=== PATIENT | male | born 1935 | race Caucasian/White ===

== ENCOUNTER → 2017-04-18 | Outpatient (CLI) | payer MEDICARE ==
[~2017-04-18] MED LIST: AC500T PO; ASP81CT; ATEN25TA; ATEN50TA PO; CATHETER FLUSH 10 ML SYR IV PRN; FURO20TA4 PO; IOHEXOL 350 MG/ML 100 ML (OMNIPAQUE 350) VIAL IV ONE; LOVENOX; MGX400T; NS 100 ML (IVPB) BAG IV ONE; OLME20TA5; OMG1KC; POTA10CA43 PO; WRF5T
[2017-04-18 12:20] LABS: CREATININE SERUM 1.2 MG/DL (0.60-1.30)
--- NOTE | 2017-04-18 14:06 | Diagnostic Imaging Report ---
PROCEDURE: CT abdomen and pelvis with contrast. TECHNIQUE: Multiple contiguous axial images were obtained through the abdomen and pelvis after administration of intravenous contrast. INDICATION: Low abdominal and back pain. FINDINGS: The lung bases are clear. 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 There is a stone in the ureteropelvic junction. There is very little residual cortex within the right kidney with cortical thickness measuring 5 mm. The left kidney shows normal renal cortex. There is no hydronephrosis on the left. There are no masses noted following IV contrast. There are several peripelvic cyst in the left kidney. Left ureter is opacified to the bladder appears normal. Bladder is opacified and appears normal. The liver appears normal. Gallbladder and bile ducts are not dilated. No gallstones or wall thickening. Pancreas is atrophic. The spleen appears normal. Aorta is atherosclerotic as are the abdominal arteries. There is no evidence of abdominal aneurysm. Good opacification of the abdominal vessels noted. The stomach and small bowel are not dilated. Colon shows normal stool and gas pattern. The appendix is visualized and normal. There is diverticulosis of the sigmoid colon and descending colon without evidence of acute diverticulitis. There is no intra-abdominal adenopathy. There is no free air or free fluid. The anterior abdominal wall is intact with no evidence of ventral or inguinal hernias. There is mild enlargement of the prostate. Bone windows show no blastic or lytic lesions. IMPRESSION: 1. 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 There are renal calculi present with a small stone noted in the renal pelvis on the right. 2. Left kidney appears normal with the exception of some peripelvic cyst. 3. Bladder appears normal. Prostate is mildly enlarged. 4. No evidence of appendicitis or acute diverticulitis. These findings were called and discussed with Dr. Graham. Dictated by: Dictated on workstation # [id number]
== END ==
LOC: RAD 11:39
PROVIDERS: ATTEND Urology
DX: N13.0 Hydronephrosis with ureteropelvic junction obstruction (principal); N20.0 Calculus of kidney; N28.1 Cyst of kidney, acquired; N26.1 Atrophy of kidney (terminal)
CPT/HCPCS: 36415; 74177; 82565; 84520

== ENCOUNTER 2017-04-25 20:51 | Emergency (ER) | payer MEDICARE ==
[~2017-04-25] VITALS: Ht 167.6 cm; Wt 87.1 kg
[~2017-04-25 20:51] MED LIST changes: -CATHETER FLUSH 10 ML SYR IV PRN; -IOHEXOL 350 MG/ML 100 ML (OMNIPAQUE 350) VIAL IV ONE; -NS 100 ML (IVPB) BAG IV ONE
[2017-04-25] MEDS ORDERED: LOSA100T28 (21:25)
[2017-04-25] MEDS ORDERED: ASPI-586 PO (21:25)
[2017-04-25] MEDS ORDERED: SULF-222 (21:25)
[2017-04-25] MEDS ORDERED: WARF-48 (21:25)
[2017-04-25] MEDS ORDERED: ATEN50TA (21:25)
--- NOTE | 2017-04-25 21:29 | ED Cardiac General ---
History of Present Illness General Chief Complaint: Cardiac/General Problems Stated Complaint: HIGH BP Nursing Triage Note: patient reports being nervous this evening and checked BP and it was elevated Source: patient, spouse Exam Limitations: no limitations History of Present Illness Time seen by provider: 21:23 Initial Comments Patient presents ER with a primary complaint of feeling a little off this evening and having measured his blood pressure it was over 200 systolic over 100 diastolic. He denies any chest pain or shortness of breath. He does have a history of a right kidney that is atrophied and he is being followed by Dr. Ovalles. He has a stone in the right kidney and has had some pain in his lower right quadrant and suprapubic regions for about a week. Last week when he saw Dr. Charlette Ovalles had ordered a CAT scan to workup that pain and while it showed some diverticulosis it did not show any reason for his abdominal pain. He was given tramadol and Bactrim he is taking the Bactrim but he felt tramadol made him nauseated so he did not take that. He has no coronary history or thyroid history however he is on atenolol and losartan for his blood pressure which she has been taking. Patient is on warfarin for atrial fibrillation Allergies and Home Medications Allergies Coded Allergies: Penicillins (Unverified Allergy, Mild, 01/28/09) levofloxacin (Verified Allergy, Unknown, 04/25/17) Home Medications Acetaminophen 500 Mg Tablet, 500 MG PO PRN, (Reported) Aspirin 81 Mg Tablet.dr, 81 MG PO, (Reported) Atenolol 50 Mg Tablet, 1 EACH PO DAILY, (Reported) Atenolol 50 Mg Tablet, #90 (Reported) Furosemide 20 Mg Tablet, 1 EACH PO DAILY, (Reported) Losartan Potassium 100 Mg Tablet, #30 (Reported) Potassium Chloride 10 Meq Capsule.sa, 1 EACH PO DAILY WITH FOOD, (Reported) Sulfamethoxazole/Trimethoprim 1 Each Tablet, #14 (Reported) Warfarin Sodium 5 Mg Tablet, (Reported) Warfarin Sodium 5 Mg Tablet, #90 (Reported) Review of Systems Constitutional: No chills, No diaphoresis, No fever, malaise EENTM: No Blurred Vision, No Double Vision, No Eye Pain Respiratory: Denies Cough, Denies Shortness of Air Cardiovascular: Denies Chest Pain, Denies Edema, Irregular Heart Rate, Denies Lightheadedness, Denies Syncope Gastrointestinal: Denies Abdomen Distended, Abdominal Pain (1 week lower hemisphere of his abdomen), Denies Constipated, Denies Diarrhea, Denies Nausea Genitourinary: Denies Discharge, Denies Drainage, Frequency Musculoskeletal: back pain (pain radiates to his lower back), No joint pain Skin: No pruritus, No rash Psychiatric/Neurological: Denies Anxiety, Denies Depressed, Denies Headache, Denies Numbness Past Bwvkdzl-[id number]-Ixscjr Hx Patient Social History Alcohol Use: Denies Use Recreational Drug Use: No Smoking Status: Never a Smoker Recent Foreign Travel: No Contact w/Someone Who Travel: No Recent Infectious Disease Expo: No Recent Hopitalizations: No Respiratory Hx Respiratory Disorders: No Cardiovascular Hx Cardiac Disorders: Yes (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) Neurological Hx Neurological Disorders: Yes Reproductive System Hx Reproductive Disorders: No Genitourinary Hx 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) Gastrointestinal Hx Gastrointestinal Disorders: Yes Musculoskeletal Hx Musculoskeletal Disorders: Yes Endocrine Hx Endocrine Disorders: No HEENT HX ENT Disorders: No Psychosocial Hx Psychiatric Problems: Yes Blood Transfusions Hx Blood Disorders: Yes Physical Exam Vital Signs Vital Sign - Last 12Hours 04/25/17 21:19 Temp 99.3 Pulse 90 Resp 18 B/P (MAP) 173/123 Pulse Ox 93 Capillary Refill : Less Than 3 Seconds General Appearance: No Apparent Distress, WD/WN HEENT: PERRL/EOMI, TMs Normal, Pharynx Normal Respiratory: Chest Non Tender, Lungs Clear, Normal Breath Sounds Cardiovascular: No Edema, Normal Peripheral Pulses, Irregularly Irregular, No JVD Gastrointestinal: Normal Bowel Sounds, Soft, Guarding (left and right lower quadrants), Tenderness (left and right lower quadrants) Extremity: Normal Capillary Refill, Non Tender, No Pedal Edema Neurologic/Psychiatric: Alert, Oriented x3 Skin: Normal Color, Warm/Dry Lymphatic: No Adenopathy Progress/Results/Core Measures Results/Orders Lab Results Laboratory Tests Test 04/25/17 21:40 04/25/17 22:40 Range/Units White Blood Count 5.5 4.3-11.0 10^3/uL Red Blood Count 4.30 L 4.35-5.85 10^6/uL Hemoglobin 13.7 13.3-17.7 G/DL Hematocrit 41 40-54 % Mean Corpuscular Volume 94 80-99 FL Mean Corpuscular Hemoglobin 32 25-34 PG Mean Corpuscular Hemoglobin Concent 34 32-36 G/DL Red Cell Distribution Width 13.7 10.0-14.5 % Platelet Count 143 130-400 10^3/uL Mean Platelet Volume 10.8 H 7.4-10.4 FL Neutrophils (%) (Auto) 63 42-75 % Lymphocytes (%) (Auto) 17 12-44 % Monocytes (%) (Auto) 15 H 0-12 % Eosinophils (%) (Auto) 4 0-10 % Basophils (%) (Auto) 1 0-10 % Neutrophils # (Auto) 3.5 1.8-7.8 X 10^3 Lymphocytes # (Auto) 0.9 L 1.0-4.0 X 10^3 Monocytes # (Auto) 0.8 0.0-1.0 X 10^3 Eosinophils # (Auto) 0.2 0.0-0.3 10^3/uL Basophils # (Auto) 0.1 0.0-0.1 10^3/uL Prothrombin Time 30.7 H 12.2-14.7 SEC INR Comment 3.0 H 0.8-1.4 Activated Partial Thromboplast Time 41 H 24-35 SEC Sodium Level 137 135-145 MMOL/L Potassium Level 4.5 3.6-5.0 MMOL/L Chloride Level 102 98-107 MMOL/L Carbon Dioxide Level 22 21-32 MMOL/L Anion Gap 13 5-14 MMOL/L Blood Urea Nitrogen 20 H 7-18 MG/DL Creatinine 1.56 H 0.60-1.30 MG/DL Estimat Glomerular Filtration Rate 43 BUN/Creatinine Ratio 13 Glucose Level 106 H 70-105 MG/DL Calcium Level 9.5 8.5-10.1 MG/DL Magnesium Level 2.0 1.8-2.4 MG/DL Total Bilirubin 1.1 H 0.1-1.0 MG/DL Aspartate Amino Transf (AST/SGOT) 27 5-34 U/L Alanine Aminotransferase (ALT/SGPT) 22 0-55 U/L Alkaline Phosphatase 103 40-136 U/L Troponin I < 0.30 <0.30 NG/ML B-Type Natriuretic Peptide 571.9 H <100.0 PG/ML Total Protein 6.8 6.4-8.2 GM/DL Albumin 4.1 3.2-4.5 GM/DL Urine Color YELLOW Urine Clarity CLEAR Urine pH 6.5 5-9 Urine Specific [place] 1.010 L 1.016-1.022 Urine Protein 1+ H NEGATIVE Urine Glucose (UA) NEGATIVE NEGATIVE Urine Ketones NEGATIVE NEGATIVE Urine Nitrite NEGATIVE NEGATIVE Urine Bilirubin NEGATIVE NEGATIVE Urine Urobilinogen 4 H NORMAL MG/DL Urine Leukocyte Esterase 1+ H NEGATIVE Urine RBC (Auto) NEGATIVE NEGATIVE Urine RBC RARE /HPF Urine WBC 2-5 /HPF Urine Crystals NONE /LPF Urine Bacteria NONE /HPF Urine Casts NONE /LPF Urine Mucus NEGATIVE /LPF Urine Culture Indicated NO My Orders Orders - MARCY GREENBERG Troponin I (04/25/17 21:29) Chest 1 View, Ap/Pa Only (04/25/17 21:29) Ekg Tracing (04/25/17 21:29) Monitor-Rhythm Ecg Trace Only (04/25/17 21:29) BNP (04/25/17 21:29) Cbc With Automated Diff (04/25/17 21:29) Comprehensive Metabolic Panel (04/25/17 21:29) Magnesium (04/25/17 21:29) Ua Culture If Indicated (04/25/17 21:29) Fentanyl Injection (Sublimaze Injection (04/25/17 21:29) Saline Lock/Iv-Start (04/25/17 21:29) Ondansetron Injection (Zofran Injectio (04/25/17 21:30) Protime With Inr (04/25/17 21:34) Partial Thromboplastin Time (04/25/17 21:34) Lumbar Spine - 2-3 Views (04/25/17 22:39) T-Spine 3v-Ap, Lat, Swimmers (04/25/17 22:39) Medications Given in ED Current Medications Medications Dose Ordered Sig/Tona Route Start Time Stop Time Status Last Admin Dose Admin Ondansetron HCl 4 mg ONCE ONCE IVP 04/25/17 21:30 04/25/17 21:34 DC 04/25/17 21:44 4 MG Vital Signs/I&O Vital Sign - Last 12Hours 04/25/17 21:19 Temp 99.3 Pulse 90 Resp 18 B/P (MAP) 173/123 Pulse Ox 93 Blood Pressure Mean: 140 Progress Note #1: Time: 22:04 Progress Note Gentleman presents with hypertensive urgency without chest pain shortness of breath or nausea. We'll make sure there is no evidence of any coronary disease. Has a negative stress test 2 years ago as well as an echocardiogram with an EF 60% dilated atrial chambers and the right ventricle with severe pulmonary hypertension. He is on atenolol as well as losartan decent doses. Just resting here in the ER his blood pressures are down to 176/91 without any medical intervention. If there is no evidence of end organ damage then we can let him go home and continue his strategy of lowering his blood pressure over days for reasonable goal of less than 160 over less than 100. Review the imaging from last week his abdomen which shows a stone in the right renal pelvis but no reason for his pain at that time. His pain has not really changed since last week. He has been tolerating it without the use the tramadol since it makes him nauseous. We will try get his pain under control today. This does to his blood pressure. We'll also look for evidence of infection with a urinalysis and blood work. If nothing presents self will provide him with outpatient pain management and let him continue his Bactrim and follow-up with Dr. Roth Progress Note #2: Time: 22:40 Progress Note Review the previous imaging of the spine as the patient states the pain actually originated in his back and radiates around the right side. Does not go down his leg. He was first noticing the pain after he had been rubbing in the garden all day and rolling under his lawnmower. Possibility of a vertebral fracture. We'll going obtain plain films of the thoracic and lumbar spine is asked for his having tenderness directly over the midline. After the fentanyl the pain is completely gone. ECG Initial ECG Impression Date: Apr 25, 2017 Initial ECG Impression Time: 21:43 Initial ECG Rate: 79 Initial ECG Rhythm: A Fib/Flutter Initial ECG Intervals: QT Initial ECG Intervals QTC is 487 ms Initial ECG Impression: Atrial Fibrillation Initial ECG Comparisson: No Previous ECG Available Comment No ST wave elevation or depression. Diagnostic Imaging Diagonstic Imaging: Xray Plain Films/CT/US/NM/MRI: chest Comments Progressive left-sided pleural effusion with some right-sided infiltrate versus atelectasis. Reviewed: Reviewed by Me Diagonstic Imaging: Xray Plain Films/CT/US/NM/MRI: other (thoracic and lumbar spine) Comments Vertebral wedging of undetermined age in the thoracic spine and one in the lumbar spine. Degenerative joint disease noted Reviewed: Reviewed by Me Departure Impression Impression: Primary Impression: Degenerative joint disease of thoracic spine Qualified Codes: M47.894 - Other spondylosis, thoracic region Additional Impressions: Fracture of posterior thoracic vertebral body Qualified Codes: S22.009A - Unspecified fracture of unspecified thoracic vertebra, initial encounter for closed fracture Supratherapeutic INR Disposition: HOME, SELF-CARE Condition: Improved Departure-Patient Inst. Decision time for Depature: 23:48 Referrals: NATHALIA NGUYỄN MD (PCP/Family) Primary Care Physician Patient Instructions: Low Back Pain (DC) Add. Discharge Instructions: For your back pain control your pain with 25 mg Tylenol every 6 hours or hydrocodone one tablet every 6 hours as needed. Hydrocodone can cause drowsiness as well as constipation. You should try and take MiraLAX or other laxatives every day while you're on the opiates. You should also wear the back brace every day that helps. Follow-up in the next week to 2 weeks with your primary care physician. If you are having nausea place one tablet of Zofran under your tongue every 6 hours and allowed to dissolve as needed. If you're having muscle spasms in your back from the back pain then you can take the cyclobenzaprine, Flexeril 1 tablet twice a day as needed. Flexeril will cause drowsiness as well as so be cautious while using it with the opiates. Until you know how these medicines will affect you it may be kowalski to take one half of a tablet at time. If you wake up in the morning still drowsy would also be reasonable to cut back to one half a tablet as a postal whole. Your INR was 3.0 and you are on an antibiotic that will cause your INR to raise. Tomorrow you'll should take one half the dose of your warfarin and then the following days get back on her normal scheduled dose and have your INR checked again next week by your primary care physician. Your blood pressure has improved as your pain control has improved. We will try and control your pain using the medicines over the weekend and next week you in your primary care physician can discuss whether or not you need to start a new blood pressure medicine. I would ask that daily in the morning before you had anything to eat drink or do any strenuous activity that you check and log your blood pressure take to your primary care physician. If you're having new or worsening symptoms such as fever then you should return to the ER. All discharge instructions reviewed with patient and/or family. Voiced understanding. Scripts Cyclobenzaprine HCl (Cyclobenzaprine HCl) 10 Mg Tablet 10 MG PO BID Y for SPASMS for 14 Days, #15 TAB 0 Refills Prov: MARCY GREENBERG 04/25/17 Ondansetron (Zofran Odt) 4 Mg Tab.rapdis 4 MG PO Q4H Y for NAUSEA/VOMITING-1ST LINE for 14 Days, #14 TAB 0 Refills Prov: MARCY GREENBERG 04/25/17 Hydrocodone/Acetaminophen (Hydrocodon -Acetaminophen 5-325) 1 Each Tablet 1 EACH PO Q6H Y for PAIN for 14 Days, #20 TAB 0 Refills Prov: MARCY GREENBERG 04/25/17 Copy Copies To 1: NATHALIA NGUYỄN MD, TITUS J Apr 25, 2017 21:29
[2017-04-25] MEDS: fentaNYL INJECTION 100 MCG/2 ML AMP IVP STA (21:44)
[2017-04-25] MEDS: ONDANSETRON 4 MG/2 ML (SDV) Z0FRAN IVP ONE (21:44)
[2017-04-25 21:48] LABS: BASOPHILS # (AUTO) 0.1 10^3/uL (0.0-0.1); BASOPHILS % (AUTO) 1 % (0-10); EOSINOPHILS # (AUTO) 0.2 10^3/uL (0.0-0.3); EOSINOPHILS % (AUTO) 4 % (0-10); LYMPHOCYTES # (AUTO) 0.9 X 10^3 (1.0-4.0); LYMPHOCYTES % (AUTO) 17 % (12-44); MEAN CORPUSCULAR HEMOGLOBIN 32 PG (25-34); MEAN CORPUSCULAR HGB CONC 34 G/DL (32-36); MEAN CORPUSCULAR VOLUME 94 FL (80-99); MEAN PLATELET VOLUME 10.8 FL (7.4-10.4); MONOCYTES # (AUTO) 0.8 X 10^3 (0.0-1.0); MONOCYTES % (AUTO) 15 % (0-12); NEUTROPHILS # (AUTO) 3.5 X 10^3 (1.8-7.8); NEUTROPHILS % (AUTO) 63 % (42-75); PLATELET COUNT 143 10^3/uL (130-400); RED CELL DISTRIBUTION WIDTH 13.7 % (10.0-14.5); WHITE BLOOD COUNT 5.5 10^3/uL (4.3-11.0)
[2017-04-25 21:58] LABS: PROTHROMBIN TIME PATIENT 30.7 SEC (12.2-14.7)
[2017-04-25 22:06] LABS: ALBUMIN 4.1 GM/DL (3.2-4.5); BILIRUBIN,TOTAL 1.1 MG/DL (0.1-1.0); CALCIUM 9.5 MG/DL (8.5-10.1); CREATININE SERUM 1.56 MG/DL (0.60-1.30); POTASSIUM 4.5 MMOL/L (3.6-5.0); TOTAL PROTEIN 6.8 GM/DL (6.4-8.2)
[2017-04-25 22:49] LABS: BILIRUBIN,URINE NEGATIVE (NEGATIVE); KETONES,URINE NEGATIVE (NEGATIVE); LEUKOCYTE ESTERASE ,URINE 1+ (NEGATIVE); NITRITE,URINE NEGATIVE (NEGATIVE); PH,URINE 6.5 (5-9); PROTEIN,URINE 1+ (NEGATIVE); UROBILINOGEN,URINE 4 MG/DL (NORMAL)
[2017-04-25] MEDS ORDERED: CYCL10TA9 PO (23:54)
[2017-04-25] MEDS ORDERED: ONDA4TAB8 PO (23:54)
[2017-04-25] MEDS ORDERED: HYDR-3812 PO (23:54)
[2017-04-25] MEDS ORDERED: RX-CYCLOBENZAPRINE 10 MG (FLEXERIL) TAB PPK#3 PO STA (23:56)
[2017-04-25 23:58] VITALS: BP 183/103
[2017-04-26] MEDS ORDERED: RX-HYDROCODONE/APAP 5/325 MG #4 TAB PK PO PRN
--- NOTE | 2017-04-26 07:15 | Diagnostic Imaging Report ---
INDICATION: Chronic back pain. COMPARISON: None. FINDINGS: Four views of the thoracic column demonstrate normal alignment. There is no subluxation or fracture. Chronic compression fracture is seen at L2. There is no new fracture or traumatic malalignment. Moderate degenerative changes seen throughout the disc spaces. IMPRESSION: 1. Chronic L2 compression fracture. No new compression fracture seen. 2. Stable degenerative disc disease. Dictated by: Dictated on workstation # [id number]
--- NOTE | 2017-04-26 07:41 | Diagnostic Imaging Report ---
INDICATION: Hypertension COMPARISON: 04/02/16 FINDINGS: Single view of the chest demonstrates cardiac enlargement with slight central vascular congestion. There is no pneumothorax. No focal infiltrate. IMPRESSION: Cardiac enlargement with slight central vascular congestion Dictated by: Dictated on workstation # [id number]
--- NOTE | 2017-04-26 07:41 | Diagnostic Imaging Report ---
INDICATION: Low back pain. COMPARISON: 10/06/15. FINDINGS: 3 views of lumbar colon demonstrate chronic compression fracture of L2. No new fracture is seen. There is no traumatic malalignment. Moderate diffuse degenerative changes are seen. IMPRESSION: Chronic L2 compression fracture. No new abnormality identified. Dictated by: Dictated on workstation # [id number]
== END 2017-04-26 | disposition home or self-care (01) ==
LOC: EDUNIT# 20:51 → ER 20:52
DX: R79.1 Abnormal coagulation profile (principal); M48.56XA Collapsed vertebra, not elsewhere classified, lumbar region, initial encounter for fracture; M48.54XA Collapsed vertebra, not elsewhere classified, thoracic region, initial encounter for fracture; I48.91 Unspecified atrial fibrillation; Z90.5 Acquired absence of kidney; Z86.79 Personal history of other diseases of the circulatory system; Z79.01 Long term (current) use of anticoagulants
CPT/HCPCS: 36415; 71010; 72072; 72100; 80053; 81000; 83735; 83880; 84484; 85025; 85610; 85730

== ENCOUNTER → 2017-09-08 | Outpatient (CLI) | payer MEDICARE ==
[~2017-09-08] MED LIST changes: +ASPI-586 PO; +ATEN50TA; +CYCL10TA9 PO; +HYDR-3812 PO; +LOSA100T28; +ONDA4TAB8 PO; +SULF-222; +WARF-48
--- NOTE | 2017-09-08 08:22 | Diagnostic Imaging Report ---
INDICATION: Difficulty breathing and cough. PA and lateral chest obtained at 8:27 a.m. and compared to 04/25/17. FINDINGS: There is cardiomegaly. There is central vascular congestion without cornelia edema. There are chronic appearing increased basilar markings which are similar to the prior study. There is no new infiltrate or pneumothorax. There is no significant pleural fluid. IMPRESSION: Cardiomegaly and central vascular prominence without cornelia edema. Chronic appearing increased interstitial markings are similar to the prior study. No consolidation or pleural fluid. Dictated by: Dictated on workstation # [id number]
== END ==
LOC: RAD 07:55
PROVIDERS: ATTEND Internal Medicine
DX: I51.7 Cardiomegaly (principal); R06.00 Dyspnea, unspecified; R91.8 Other nonspecific abnormal finding of lung field; R05 Cough
CPT/HCPCS: 71020; 94060; 94726; 94729

== ENCOUNTER 2018-04-14 06:57 | Emergency (ER) | payer MEDICARE ==
[~2018-04-14] VITALS: Ht 167.6 cm; Wt 79.4 kg
[~2018-04-14 06:57] MED LIST changes: +ACHD5005 PO; -HYDR-3812 PO
[2018-04-14 07:38] LABS: BASOPHILS % (AUTO) 1 % (0-10); EOSINOPHILS # (AUTO) 0.4 10^3/uL (0.0-0.3); EOSINOPHILS % (AUTO) 12 % (0-10); HEMATOCRIT 37 % (40-54); HEMOGLOBIN 12.3 G/DL (13.3-17.7); LYMPHOCYTES # (AUTO) 0.8 X 10^3 (1.0-4.0); LYMPHOCYTES % (AUTO) 24 % (12-44); MEAN CORPUSCULAR HEMOGLOBIN 34 PG (25-34); MEAN CORPUSCULAR HGB CONC 34 G/DL (32-36); MEAN CORPUSCULAR VOLUME 101 FL (80-99); MEAN PLATELET VOLUME 11.7 FL (7.4-10.4); MONOCYTES # (AUTO) 0.4 X 10^3 (0.0-1.0); MONOCYTES % (AUTO) 13 % (0-12); NEUTROPHILS # (AUTO) 1.7 X 10^3 (1.8-7.8); NEUTROPHILS % (AUTO) 51 % (42-75); PLATELET COUNT 107 10^3/uL (130-400); RED BLOOD COUNT 3.62 10^6/uL (4.35-5.85); RED CELL DISTRIBUTION WIDTH 14.8 % (10.0-14.5); WHITE BLOOD COUNT 3.4 10^3/uL (4.3-11.0)
--- NOTE | 2018-04-14 07:42 | ED General ---
General Chief Complaint: Cardiac/General Problems Stated Complaint: DIZZY, BLOOD PRESSURE 215/110 Source of Information: Patient Exam Limitations: No Limitations History of Present Illness Date Seen by Provider: Apr 14, 2018 Time Seen by Provider: 07:25 Initial Comments Here with report of feeling a little dizzy this morning so he took his blood pressure. It was noted to be high at home. He did take a clonidine that he had left over from previous. He then presented to the emergency department. Denies chest pain or breathing problems. Did have some nausea earlier that has subsequently resolved. He still feels a little bit dizzy. States that his blood pressures been good for quite some time but recently has had more problems with his blood pressure. He is only on atenolol. Timing/Duration: 1 Hour, 1-3 Hours Severity: Moderate Associated Systoms: No Chest Pain, No Fever/Chills, No Headaches; Nausea/ Vomiting; No Shortness of Air, No Weakness Allergies and Home Medications Allergies Coded Allergies: Penicillins (Unverified Allergy, Mild, 01/28/09) levofloxacin (Verified Allergy, Unknown, 04/25/17) Home Medications Acetaminophen 500 Mg Tablet, 500 MG PO PRN, (Reported) Amlodipine Besylate 10 Mg Tablet, 10 MG PO DAILY Prescribed by: ORTIZ ALEXANDRE on 04/14/18 104 Atenolol 50 Mg Tablet, 1 EACH PO DAILY, (Reported) Cyclobenzaprine HCl 10 Mg Tablet, 10 MG PO BID PRN for SPASMS Prescribed by: MARCY GREENBERG on 04/25/172353 Furosemide 20 Mg Tablet, 1 EACH PO DAILY, (Reported) Furosemide 40 Mg Tablet, 40 MG PO DAILY Prescribed by: ORTIZ ALEXANDRE on 04/14/18 104 Hydrocodone Bit/Acetaminophen 1 Each Tablet, 1 EACH PO Q6H PRN for PAIN Prescribed by: MARCY GREENBERG on 04/25/172353 Ondansetron 4 Mg Tab.rapdis, 4 MG PO Q4H PRN for NAUSEA/VOMITING-1ST LINE Prescribed by: MARCY GREENBERG on 04/25/172353 Potassium Chloride 10 Meq Capsule.sa, 1 EACH PO DAILY WITH FOOD, (Reported) Patient Home Medication List Home Medication List Reviewed: Yes Review of Systems Constitutional: see HPI; No chills, No fever EENTM: no symptoms reported Respiratory: No cough, No short of breath Cardiovascular: No chest pain, No edema, No palpitations Gastrointestinal: No abdominal pain; nausea; No vomiting Genitourinary: no symptoms reported Musculoskeletal: no symptoms reported Skin: no symptoms reported Psychiatric/Neurological: See HPI; Denies Numbness, Denies Weakness Hematologic/Lymphatic: Easy Bruising; Denies Swollen Glands All Other Systems Reviewed Negative Unless Noted: Yes Past Mvdkxoj-Qciohc-Wxohvt Hx Past Med/Social Hx: Reviewed Nursing Past Med/Soc Hx Patient Social History Alcohol Use: Denies Use Recreational Drug Use: No Smoking Status: Never a Smoker Recent Foreign Travel: No Contact w/Someone Who Travel: No Recent Hopitalizations: No Past Medical History Surgeries: Yes (L carotid) Vascular Surgery Respiratory: No Cardiac: Yes (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) Hypertension Neurological: Yes Reproductive Disorders: No Gastrointestinal: Yes Musculoskeletal: Yes Endocrine: No Psychosocial: Yes Blood Disorders: Yes Family Medical History No Pertinent Family Hx Physical Exam Vital Signs Vital Signs - First Documented 04/14/18 07:10 Temp 96.1 Pulse 61 Resp 20 B/P (MAP) 180/95 (123) Pulse Ox 94 O2 Delivery Room Air Capillary Refill : Height, Weight, BMI Height: 5'6.00" Weight: 192lbs. oz. 87.565219rq; BMI Method:Stated General Appearance: No Apparent Distress, WD/WN HEENT: PERRL/EOMI, Pharynx Normal Neck: Non Tender, Supple Respiratory: No Accessory Muscle Use, No Respiratory Distress, Crackles ( bilateral bases), Expiration, Inspiration Cardiovascular: Regular Rate, Rhythm, No Murmur Gastrointestinal: Non Tender, Soft Back: Normal Inspection, No CVA Tenderness, No Vertebral Tenderness Extremity: Normal Range of Motion, Non Tender, Pedal Edema (1+ bilat lower extremities to mid tibia) Neurologic/Psychiatric: Alert, Oriented x3, No Motor/Sensory Deficits, Other ( normal gait) Skin: Normal Color, Warm/Dry Progress/Results/Core Measures Suspected Sepsis SIRS Temperature: Pulse: Respiratory Rate: Laboratory Tests 04/14/18 07:20: White Blood Count 3.4L Blood Pressure / Mean: Laboratory Tests 04/14/18 07:20: Creatinine 1.16, INR Comment 2.6H, Platelet Count 107L, Total Bilirubin 2.1H Results/Orders Lab Results Laboratory Tests Test 04/14/18 07:20 04/14/18 09:37 Range/Units White Blood Count 3.4 L 4.3-11.0 10^3/uL Red Blood Count 3.62 L 4.35-5.85 10^6/uL Hemoglobin 12.3 L 13.3-17.7 G/DL Hematocrit 37 L 40-54 % Mean Corpuscular Volume 101 H 80-99 FL Mean Corpuscular Hemoglobin 34 25-34 PG Mean Corpuscular Hemoglobin Concent 34 32-36 G/DL Red Cell Distribution Width 14.8 H 10.0-14.5 % Platelet Count 107 L 130-400 10^3/uL Mean Platelet Volume 11.7 H 7.4-10.4 FL Neutrophils (%) (Auto) 51 42-75 % Lymphocytes (%) (Auto) 24 12-44 % Monocytes (%) (Auto) 13 H 0-12 % Eosinophils (%) (Auto) 12 H 0-10 % Basophils (%) (Auto) 1 0-10 % Neutrophils # (Auto) 1.7 L 1.8-7.8 X 10^3 Lymphocytes # (Auto) 0.8 L 1.0-4.0 X 10^3 Monocytes # (Auto) 0.4 0.0-1.0 X 10^3 Eosinophils # (Auto) 0.4 H 0.0-0.3 10^3/uL Basophils # (Auto) 0.0 0.0-0.1 10^3/uL Prothrombin Time 28.0 H 12.2-14.7 SEC INR Comment 2.6 H 0.8-1.4 Activated Partial Thromboplast Time 38 H 24-35 SEC Sodium Level 141 135-145 MMOL/L Potassium Level 4.3 3.6-5.0 MMOL/L Chloride Level 109 H 98-107 MMOL/L Carbon Dioxide Level 26 21-32 MMOL/L Anion Gap 6 5-14 MMOL/L Blood Urea Nitrogen 25 H 7-18 MG/DL Creatinine 1.16 0.60-1.30 MG/DL Estimat Glomerular Filtration Rate 60 BUN/Creatinine Ratio 22 Glucose Level 109 H 70-105 MG/DL Calcium Level 8.9 8.5-10.1 MG/DL Magnesium Level 1.9 1.8-2.4 MG/DL Total Bilirubin 2.1 H 0.1-1.0 MG/DL Aspartate Amino Transf (AST/SGOT) 35 H 5-34 U/L Alanine Aminotransferase (ALT/SGPT) 26 0-55 U/L Alkaline Phosphatase 69 40-136 U/L Myoglobin 160.8 H 157.0 H 10.0-92.0 NG/ML Troponin I < 0.30 < 0.30 <0.30 NG/ML B-Type Natriuretic Peptide 1285.6 H <100.0 PG/ML Total Protein 5.9 L 6.4-8.2 GM/DL Albumin 3.8 3.2-4.5 GM/DL My Orders Orders - ORTIZ ALEXANDRE MD Ekg Tracing (04/14/18 07:11) Monitor-Rhythm Ecg Trace Only (04/14/18 07:11) Cbc With Automated Diff (04/14/18 07:28) Magnesium (04/14/18 07:28) Chest 1 View, Ap/Pa Only (04/14/18 07:28) Cardiac Profile 1 (04/14/18 07:28) Comprehensive Metabolic Panel (04/14/18 07:28) Myoglobin Serum (04/14/18 07:28) Protime With Inr (04/14/18 07:28) Partial Thromboplastin Time (04/14/18 07:28) O2 (04/14/18 07:28) Lipid Panel (04/15/18 06:00) Saline Lock/Iv-Start (04/14/18 07:28) BNP (04/14/18 07:28) Dysphagia Screening Tool (04/14/18 07:36) Amlodipine Tablet (Norvasc Tablet) (04/14/18 08:45) Furosemide Injection (Lasix Injection) (04/14/18 08:45) Troponin I (04/14/18 09:31) Myoglobin Serum (04/14/18 09:31) Medications Given in ED Current Medications Medications Dose Ordered Sig/Tona Route Start Time Stop Time Status Last Admin Dose Admin Amlodipine Besylate 10 mg ONCE ONCE PO 04/14/18 08:45 04/14/18 08:46 DC 04/14/18 08:55 10 MG Furosemide 40 mg ONCE ONCE IVP 04/14/18 08:45 04/14/18 08:46 DC 04/14/18 08:57 40 MG Vital Signs/I&O 04/14/18 07:10 Temp 96.1 Pulse 61 Resp 20 B/P (MAP) 180/95 (123) Pulse Ox 94 O2 Delivery Room Air Capillary Refill : Progress Note : Progress Note Seen and evaluated. IV, labs, EKG and chest x-ray ordered. Patient is on Coumadin so we'll check INR. Patient did take his losartan this morning. We did do dysphasia screen and NIH which were both negative. Blood pressure is slowly improving and we will continue to monitor that. 0840: I did speak with Dr. Gill. We will initiate amlodipine 10 mg by mouth for the blood pressure and give Lasix 40 mg IV for the pulmonary vascular congestion. I did speak with the patient about this. He does admit that he's been increasingly short of breath over the last several months. Also notes that he has decreased appetite and some increased fatigue. We will monitor for blood pressure changes. 0930: Meds have been given and her and we will recheck troponin and myoglobin. 1030: Overall patient feels much better although blood pressure is only mildly reduced but is doing better. Systolic blood pressure in the range of 170s and 180s with diastolic in the range of 90s to 100. He has had good urine output. Patient admits that he hasn't been taking his Lasix for some time now and does describe his shortness of breath symptoms to be with exercise consistent with early heart failure. He would like to try to go home today with follow-up with Dr. Menendez. We did discuss risk and benefits. We will continue amlodipine outpatient and have patient restart Lasix daily with follow- up within 1 week and the cardiology clinic. I will send a copy of the chart to Dr. Menendez's office. He will need recheck of his potassium and reevaluation of his overall condition including blood pressure. I did instruct the patient to do daily weights and record. Discharged home with return precautions. Patient verbalize understanding instructions and agreement with plan. ECG Initial ECG Impression Date: Apr 14, 2018 Initial ECG Impression Time: 07:14 Initial ECG Rate: 66 Initial ECG Rhythm: A Fib/Flutter Initial ECG Impression: Atrial Fibrillation Comment Atrial fibrillation with left ventricular hypertrophy. Normal axis. No evidence of ST elevation NC. Similar to previous of 04/25/17. Interpreted by me. Departure Impression Primary Impression: Uncontrolled hypertension Disposition: 01 HOME, SELF-CARE Condition: Stable Departure-Patient Inst. Referrals: NATHALIA NGUYỄN MD (PCP/Family) Primary Care Physician Patient Instructions: High Blood Pressure (DC), High Blood Pressure Emergencies Add. Discharge Instructions: All discharge instructions reviewed with patient and/or family. Voiced understanding. Take medications as directed. You should check and record your weight daily. You need to follow-up in the cardiology clinic next week for recheck and further evaluation. Continue your Lasix/furosemide daily for the next week and then as directed. Return for worse pain, fever, vomiting, weakness, breathing problems, chest pain, uncontrolled blood pressure other concerns as needed. Scripts Furosemide (Furosemide) 40 Mg Tablet 40 MG PO DAILY, #15 TAB 0 Refills Prov: ORTIZ ALEXANDRE MD 04/14/18 Amlodipine Besylate (Amlodipine Besylate) 10 Mg Tablet 10 MG PO DAILY for 30 Days, #30 TAB 0 Refills Prov: ORTIZ ALEXANDRE MD 04/14/18 Copy Copies To 1: DAVIAN MENENDEZ MD, TIMOTHY D MD Apr 14, 2018 07:42
[2018-04-14 07:44] LABS: INR 2.6 (0.8-1.4)
[2018-04-14 07:53] LABS: ALANINE AMINOTRANSFERASE 26 U/L (0-55); ALBUMIN 3.8 GM/DL (3.2-4.5); ALKALINE PHOSPHATASE 69 U/L (40-136); BILIRUBIN,TOTAL 2.1 MG/DL (0.1-1.0); BUN/CREATININE RATIO 22; CALCIUM 8.9 MG/DL (8.5-10.1); CARBON DIOXIDE 26 MMOL/L (21-32); CHLORIDE 109 MMOL/L (98-107); CREATININE SERUM 1.16 MG/DL (0.60-1.30); GFR ESTIMATED 60; GLUCOSE 109 MG/DL (70-105); MAGNESIUM 1.9 MG/DL (1.8-2.4); POTASSIUM 4.3 MMOL/L (3.6-5.0); SODIUM 141 MMOL/L (135-145); TOTAL PROTEIN 5.9 GM/DL (6.4-8.2)
[2018-04-14 08:02] LABS: MYOGLOBIN SERUM 160.8 NG/ML (10.0-92.0)
--- NOTE | 2018-04-14 08:25 | Diagnostic Imaging Report ---
INDICATION: Hypertension. Comparison with 09/08/2017. Findings: There continues to be cardiomegaly. There has been some increase in pulmonary venous congestion. Prominence of central pulmonary arteries consistent with some pulmonary hypertension as well. There are no consolidated infiltrates. No pneumothorax or pleural effusion. IMPRESSION: 1. Cardiomegaly with findings consistent with mild chronic congestive failure. 2. Prominent central pulmonary vessels which may be secondary to some underlying pulmonary hypertension as well. Dictated by: Dictated on workstation # [id number]
[2018-04-14] MEDS ORDERED: amLODIPine 10 MG (NORVASC) TAB PO ONE (08:45)
[2018-04-14] MEDS ORDERED: FUROSEMIDE 40 MG/4 ML INJ (LASIX) IVP ONE (08:45)
[2018-04-14] MEDS ORDERED: AMLO10TA2 PO (10:46)
[2018-04-14] MEDS ORDERED: FURO40TA4 PO (10:46)
[2018-04-14 10:53] VITALS: BP 173/109
== END 2018-04-14 10:54 | disposition home or self-care (01) ==
LOC: EDUNIT# 06:57 → ER 06:59
DX: I10 Essential (primary) hypertension (principal); Z88.0 Allergy status to penicillin; Z88.1 Allergy status to other antibiotic agents; Z79.01 Long term (current) use of anticoagulants
CPT/HCPCS: 36415; 71045; 80053; 83735; 83874; 83880; 84484; 85025; 85610; 85730; 93005; 93041; 96374

== ENCOUNTER → 2018-05-01 | Outpatient (CLI) | payer MEDICARE ==
[~2018-05-01] MED LIST changes: +AMLO10TA2 PO; +FURO40TA4 PO
== END ==
LOC: CARD 13:25
PROVIDERS: ATTEND Physician Assistant
DX: I48.2 Chronic atrial fibrillation (principal); I10 Essential (primary) hypertension; R06.09 Other forms of dyspnea; I08.3 Combined rheumatic disorders of mitral, aortic and tricuspid valves; I27.20 Pulmonary hypertension, unspecified
CPT/HCPCS: 93306

== ENCOUNTER 2018-06-02 13:20 | Outpatient (RCR) | payer MEDICARE ==
[2018-06-02 14:00] LABS: ABSOLUTE RETIC # 33 10e9/L (24-90); BASOPHILS % (AUTO) 1 % (0-10); EOSINOPHILS # (AUTO) 0.4 10^3/uL (0.0-0.3); EOSINOPHILS % (AUTO) 9 % (0-10); HEMATOCRIT 36 % (40-54); LYMPHOCYTES # (AUTO) 1.2 X 10^3 (1.0-4.0); LYMPHOCYTES % (AUTO) 27 % (12-44); MEAN CORPUSCULAR HEMOGLOBIN 34 PG (25-34); MEAN CORPUSCULAR HGB CONC 34 G/DL (32-36); MEAN CORPUSCULAR VOLUME 101 FL (80-99); MEAN PLATELET VOLUME 9.6 FL (7.4-10.4); MONOCYTES # (AUTO) 0.6 X 10^3 (0.0-1.0); MONOCYTES % (AUTO) 14 % (0-12); NEUTROPHILS # (AUTO) 2.3 X 10^3 (1.8-7.8); NEUTROPHILS % (AUTO) 50 % (42-75); PLATELET COUNT 99 10^3/uL (130-400); RED BLOOD COUNT 3.56 10^6/uL (4.35-5.85); RED CELL DISTRIBUTION WIDTH 13.9 % (10.0-14.5); RETICULOCYTE % 0.92 % (0.50-2.40); WHITE BLOOD COUNT 4.6 10^3/uL (4.3-11.0)
[2018-06-02 14:26] LABS: ALBUMIN 3.9 GM/DL (3.2-4.5); BILIRUBIN,TOTAL 1.5 MG/DL (0.1-1.0); CALCIUM 9.3 MG/DL (8.5-10.1); CREATININE SERUM 1.15 MG/DL (0.60-1.30); POTASSIUM 4.1 MMOL/L (3.6-5.0); TOTAL PROTEIN 6.2 GM/DL (6.4-8.2)
[2018-06-02 15:59] LABS: FIBRIN DEGRADATION PRODUCTS 0.53 UG/ML (0.00-0.49)
== END 2018-06-21 | disposition home or self-care (01) ==
LOC: ONC 13:20
PROVIDERS: ATTEND Internal Medicine Hematology & Oncology
DX: D64.9 Anemia, unspecified (principal); D69.6 Thrombocytopenia, unspecified; I48.91 Unspecified atrial fibrillation; I10 Essential (primary) hypertension; R60.0 Localized edema; R06.09 Other forms of dyspnea; Z79.01 Long term (current) use of anticoagulants; Z79.82 Long term (current) use of aspirin
CPT/HCPCS: 36415; 80053; 82607; 82728; 82746; 83010; 83540; 83615; 85025; 85045; 85379; 85384; 85730; 86880; 99214

== ENCOUNTER → 2018-06-02 | Outpatient (CLI) | payer MEDICARE ==
[~2018-06-02] MED LIST changes: -AMLO10TA2 PO; +AMLO10TA6 PO; -LOSA100T28; +LOSA100T8
[2018-06-02 14:53] LABS: BILIRUBIN,TOTAL 1.5 MG/DL (0.1-1.0); CALCIUM 9.3 MG/DL (8.5-10.1); CREATININE SERUM 1.15 MG/DL (0.60-1.30); POTASSIUM 4.1 MMOL/L (3.6-5.0)
[2018-06-02 14:54] LABS: ALBUMIN 3.9 GM/DL (3.2-4.5); TOTAL PROTEIN 6.2 GM/DL (6.4-8.2)
== END ==
LOC: LAB 14:05
PROVIDERS: ATTEND Internal Medicine
DX: I10 Essential (primary) hypertension (principal); E78.5 Hyperlipidemia, unspecified; Z79.899 Other long term (current) drug therapy
CPT/HCPCS: 36415; 80053; 84443

== ENCOUNTER 2018-10-15 13:00 | Outpatient (RCR) | payer MEDICARE ==
[~2018-10-15 13:00] MED LIST changes: -AMLO10TA6 PO; +AMLO10TA7 PO; +LOSA100T57; -LOSA100T8
[2018-10-15 13:34] LABS: BASOPHILS # (AUTO) 0.1 10^3/uL (0.0-0.1); BASOPHILS % (AUTO) 1 % (0-10); EOSINOPHILS # (AUTO) 0.3 10^3/uL (0.0-0.3); EOSINOPHILS % (AUTO) 5 % (0-10); HEMATOCRIT 41 % (40-54); HEMOGLOBIN 14.2 G/DL (13.3-17.7); LYMPHOCYTES # (AUTO) 1.2 X 10^3 (1.0-4.0); LYMPHOCYTES % (AUTO) 22 % (12-44); MEAN CORPUSCULAR HEMOGLOBIN 34 PG (25-34); MEAN CORPUSCULAR HGB CONC 34 G/DL (32-36); MEAN CORPUSCULAR VOLUME 98 FL (80-99); MEAN PLATELET VOLUME 10.6 FL (7.4-10.4); MONOCYTES # (AUTO) 0.4 X 10^3 (0.0-1.0); MONOCYTES % (AUTO) 8 % (0-12); NEUTROPHILS # (AUTO) 3.3 X 10^3 (1.8-7.8); NEUTROPHILS % (AUTO) 64 % (42-75); PLATELET COUNT 124 10^3/uL (130-400); RED CELL DISTRIBUTION WIDTH 13.6 % (10.0-14.5); WHITE BLOOD COUNT 5.2 10^3/uL (4.3-11.0)
[2018-10-15 14:01] LABS: BILIRUBIN,TOTAL 1.2 MG/DL (0.1-1.0); CALCIUM 9.3 MG/DL (8.5-10.1); CREATININE SERUM 1.44 MG/DL (0.60-1.30); POTASSIUM 4.2 MMOL/L (3.6-5.0); TOTAL PROTEIN 6.6 GM/DL (6.4-8.2)
== END 2019-01-13 | disposition home or self-care (01) ==
LOC: ONC 13:00
PROVIDERS: ATTEND Internal Medicine Hematology & Oncology
DX: D64.9 Anemia, unspecified (principal); D69.6 Thrombocytopenia, unspecified; E55.9 Vitamin D deficiency, unspecified; I48.91 Unspecified atrial fibrillation; I10 Essential (primary) hypertension; R60.0 Localized edema; R06.09 Other forms of dyspnea; Z79.01 Long term (current) use of anticoagulants; Z79.82 Long term (current) use of aspirin
CPT/HCPCS: 36415; 80053; 82306; 85025; 99213

== ENCOUNTER → 2019-04-05 | Outpatient (CLI) | payer MEDICARE ==
--- NOTE | 2019-04-05 17:50 | Diagnostic Imaging Report ---
INDICATION: Fall with left knee pain and swelling. TIME OF EXAM: 2:34 p.m. TECHNIQUE: Two views of the left knee were obtained. FINDINGS: There is significant lateral compartmental joint space narrowing and marginal spurring. Medial compartment is maintained. Szcy-nw-ndencsai patellofemoral degenerative changes noted. There is moderate fullness in the suprapatellar region, consistent with joint effusion. Generalized demineralization is noted. No fractures are seen. IMPRESSION: Degenerative changes, demineralization, and moderate joint effusion. No acute bony abnormality is detected. Dictated by: Dictated on workstation # [id number]
--- NOTE | 2019-04-05 17:55 | Diagnostic Imaging Report ---
INDICATION: Shortness of air. TIME OF EXAM: 2:32 p.m. COMPARISON: Correlation is made with prior chest from 04/14/2018. FINDINGS: The heart is enlarged but stable. Lungs are hyperinflated consistent with COPD. No infiltrates are seen. There is no significant effusion or pneumothorax. IMPRESSION: Cardiomegaly and COPD. Dictated by: Dictated on workstation # [id number]
== END ==
LOC: RAD 14:07
PROVIDERS: ATTEND Internal Medicine
DX: M17.12 Unilateral primary osteoarthritis, left knee (principal); M25.462 Effusion, left knee; M81.0 Age-related osteoporosis without current pathological fracture; I51.7 Cardiomegaly; J44.9 Chronic obstructive pulmonary disease, unspecified; W19.XXXA Unspecified fall, initial encounter
CPT/HCPCS: 71046; 73562

== ENCOUNTER 2019-04-15 13:10 | Outpatient (RCR) | payer MEDICARE ==
[2019-04-08 13:33] LABS: BASOPHILS # (AUTO) 0.1 10^3/uL (0.0-0.1); BASOPHILS % (AUTO) 1 % (0-10); EOSINOPHILS # (AUTO) 0.4 10^3/uL (0.0-0.3); EOSINOPHILS % (AUTO) 10 % (0-10); HEMATOCRIT 37 % (40-54); HEMOGLOBIN 11.5 G/DL (13.3-17.7); LYMPHOCYTES % (AUTO) 22 % (12-44); MEAN CORPUSCULAR HEMOGLOBIN 32 PG (25-34); MEAN CORPUSCULAR HGB CONC 31 G/DL (32-36); MEAN CORPUSCULAR VOLUME 103 FL (80-99); MEAN PLATELET VOLUME 11.7 FL (7.4-10.4); MONOCYTES # (AUTO) 0.7 X 10^3 (0.0-1.0); MONOCYTES % (AUTO) 14 % (0-12); NEUTROPHILS # (AUTO) 2.4 X 10^3 (1.8-7.8); NEUTROPHILS % (AUTO) 53 % (42-75); PLATELET COUNT 107 10^3/uL (130-400); WHITE BLOOD COUNT 4.5 10^3/uL (4.3-11.0)
[2019-04-08 14:07] LABS: ALBUMIN 3.6 GM/DL (3.2-4.5); BILIRUBIN,TOTAL 1.8 MG/DL (0.1-1.0); CREATININE SERUM 1.33 MG/DL (0.60-1.30); TOTAL PROTEIN 5.8 GM/DL (6.4-8.2)
== END 2019-07-07 | disposition home or self-care (01) ==
LOC: ONC 13:10
PROVIDERS: ATTEND Internal Medicine Hematology & Oncology
DX: D64.9 Anemia, unspecified (principal); D69.6 Thrombocytopenia, unspecified; E55.9 Vitamin D deficiency, unspecified; I48.91 Unspecified atrial fibrillation; I10 Essential (primary) hypertension; R60.0 Localized edema; R06.09 Other forms of dyspnea; Z79.01 Long term (current) use of anticoagulants; Z79.82 Long term (current) use of aspirin
CPT/HCPCS: 80053; 82306; 82728; 83615; 85025; 99213

== ENCOUNTER 2019-07-23 10:21 | Emergency (ER) | payer MEDICARE ==
[~2019-07-23] VITALS: Ht 177.8 cm; Wt 79.5 kg
[~2019-07-23 10:21] MED LIST changes: -ATEN50TA; -LOSA100T57; +LOSA100T57 PO; -WARF-48; +WARF-48 PO
[2019-07-23] MEDS ORDERED: TETANUS,DIPTH,PERTUSS P/F (BOOSTRIX) 0.5 ML VIAL IM ONE (11:00)
--- NOTE | 2019-07-23 11:03 | ED Fall/Injury ---
General Chief Complaint: Trauma-Non Activation Stated Complaint: FELL Source: patient Exam Limitations: no limitations History of Present Illness Date Seen by Provider: Jul 23, 2019 Time Seen by Provider: 11:01 Initial Comments To ER per private vehicle from home with reports of a fall. The patch to his vehicle was closing, he moved to get out of the road and in doing so he fell. He did not hit his head and denies any loss of consciousness or neck pain. He does report left shoulder pain, left posterior thoracic pain and left elbow pain. He denies left abdominal pain. Occurred: just prior to arrival Severity: moderate Injuries/Pain Location: upper extremity Context: lost balance Loss of Consciousness: no loss of consciousness Associated Symptoms (Fall): No Neck Pain Allergies and Home Medications Allergies Coded Allergies: Penicillins (Unverified Allergy, Mild, 01/28/09) levofloxacin (Verified Allergy, Unknown, 04/25/17) Home Medications Acetaminophen 500 Mg Tablet, 500 MG PO PRN, (Reported) Amlodipine Besylate 10 Mg Tablet, 10 MG PO DAILY Prescribed by: ORTIZ ALEXANDRE on 04/14/18 104 Atenolol 50 Mg Tablet, 1 EACH PO DAILY, (Reported) Cyclobenzaprine HCl 10 Mg Tablet, 10 MG PO BID PRN for SPASMS Prescribed by: MARCY GREENBERG on 04/25/17 235 Furosemide 20 Mg Tablet, 1 EACH PO DAILY, (Reported) Furosemide 40 Mg Tablet, 40 MG PO DAILY Prescribed by: ORTIZ ALEXANDRE on 04/14/18 1046 Hydrocodone Bit/Acetaminophen 1 Each Tablet, 1 EACH PO Q6H PRN for PAIN Prescribed by: MARCY GREENBERG on 04/25/17 235 Ondansetron 4 Mg Tab.rapdis, 4 MG PO Q4H PRN for NAUSEA/VOMITING-1ST LINE Prescribed by: MARCY GREENBERG on 04/25/17 235 Potassium Chloride 10 Meq Capsule.sa, 1 EACH PO DAILY WITH FOOD, (Reported) Patient Home Medication List Home Medication List Reviewed: Yes Review of Systems Review of Systems Constitutional: see HPI Eyes: No Symptoms Reported Ears, Nose, Mouth, Throat: no symptoms reported Respiratory: no symptoms reported Cardiovascular: no symptoms reported Genitourinary: no symptoms reported Musculoskeletal: no symptoms reported Skin: no symptoms reported Psychiatric/Neurological: No Symptoms Reported Past Eqraqml-Kuawwj-Xfshgq Hx Patient Social History 2nd Hand Smoke Exposure: No Recent Foreign Travel: No Contact w/Someone Who Travel: No Recent Hopitalizations: No Seasonal Allergies Seasonal Allergies: Yes Past Medical History Surgeries: Yes (L carotid) Vascular Surgery Respiratory: No Cardiac: Yes (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) Hypertension Neurological: No Reproductive Disorders: No 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 ) Gastrointestinal: No Musculoskeletal: Yes Arthritis, Back Injury Endocrine: No HEENT: Yes Cataract Cancer: No Psychosocial: No Blood Disorders: No Family Medical History No Pertinent Family Hx Physical Exam Vital Signs Vital Signs - First Documented Capillary Refill : Height, Weight, BMI Height: 5'6.00" Weight: 175lbs. oz. 79.273039vl; BMI Method:Stated General Appearance: WD/WN, no apparent distress HEENT: PERRL/EOMI, normal ENT inspection Neck: non-tender, full range of motion Cardiovascular: no murmur, irregularly irregular Respiratory: no respiratory distress, no accessory muscle use, rales ( ) Gastrointestinal: normal bowel sounds, non tender, soft Neurologic/Psychiatric: alert, normal mood/affect, oriented x 3 Skin: normal color, warm/dry, other (superficial skin tear posterior left elbow, over the ulnar styloid left wrist, to the very tips of the fingers. These were covered with bandages.) Darin Coma Score Best Eye Response: (4) Open Spontaneously Best Verbal Response: (5) Oriented Best Motor Response: (6) Obeys Commands Darin Total: 15 Progress/Results/Core Measures Results/Orders Lab Results Laboratory Tests Test 07/23/19 12:35 Range/Units White Blood Count 4.9 4.3-11.0 10^3/uL Red Blood Count 3.70 L 4.35-5.85 10^6/uL Hemoglobin 12.0 L 13.3-17.7 G/DL Hematocrit 37 L 40-54 % Mean Corpuscular Volume 100 H 80-99 FL Mean Corpuscular Hemoglobin 32 25-34 PG Mean Corpuscular Hemoglobin Concent 33 32-36 G/DL Red Cell Distribution Width 15.4 H 10.0-14.5 % Platelet Count 88 L 130-400 10^3/uL Mean Platelet Volume 10.7 H 7.4-10.4 FL Neutrophils (%) (Auto) 65 42-75 % Lymphocytes (%) (Auto) 15 12-44 % Monocytes (%) (Auto) 13 H 0-12 % Eosinophils (%) (Auto) 6 0-10 % Basophils (%) (Auto) 1 0-10 % Neutrophils # (Auto) 3.2 1.8-7.8 X 10^3 Lymphocytes # (Auto) 0.8 L 1.0-4.0 X 10^3 Monocytes # (Auto) 0.6 0.0-1.0 X 10^3 Eosinophils # (Auto) 0.3 0.0-0.3 10^3/uL Basophils # (Auto) 0.0 0.0-0.1 10^3/uL Prothrombin Time 28.3 H 12.2-14.7 SEC INR Comment 2.5 H 0.8-1.4 Sodium Level 139 135-145 MMOL/L Potassium Level 4.5 3.6-5.0 MMOL/L Chloride Level 104 98-107 MMOL/L Carbon Dioxide Level 25 21-32 MMOL/L Anion Gap 10 5-14 MMOL/L Blood Urea Nitrogen 25 H 7-18 MG/DL Creatinine 1.20 0.60-1.30 MG/DL Estimat Glomerular Filtration Rate 57 BUN/Creatinine Ratio 21 Glucose Level 89 70-105 MG/DL Calcium Level 9.1 8.5-10.1 MG/DL My Orders Orders - YANA CONWAY APRN Ribs/Unilateral With Chest (07/23/19 10:58) Elbow, Left, 3 Views (07/23/19 10:58) Shoulder, Left, 3 Views (07/23/19 10:58) Dipht,Pertuss(Acell),Tet Adult (Boostrix (07/23/19 11:00) Us Abdomen Limited [id number] (07/23/19 11:03) Ed Iv/Invasive Line Start (07/23/19 12:29) Cbc With Automated Diff (07/23/19 12:29) Basic Metabolic Panel (07/23/19 12:29) I-Stat Bedside Testing (07/23/19 12:32) Protime With Inr (07/23/19 12:38) Ct Abdomen/Pelvis W (07/23/19 13:06) Iohexol Injection (Omnipaque 350 Mg/Ml 1 (07/23/19 13:15) Received Contrast (Hold Metformin- Contr (07/23/19 13:15) Sodium Chloride Flush (Catheter Flush Sy (07/23/19 13:15) Ns (Ivpb) (Sodium Chloride 0.9% Ivpb Bag (07/23/19 13:15) Medications Given in ED Current Medications Medications Dose Ordered Sig/Tona Route Start Time Stop Time Status Last Admin Dose Admin Diphtheria/ Tetanus/Acell Pertussis 0.5 ml ONCE ONCE IM 07/23/19 11:00 07/23/19 11:01 DC 07/23/19 11:08 0.5 ML Iohexol 100 ml ONCE ONCE IV 07/23/19 13:15 07/23/19 13:16 DC 07/23/19 13:23 100 ML Sodium Chloride 10 ml NEEDED PRN IV 07/23/19 13:15 07/23/19 13:23 10 ML Sodium Chloride 100 ml ONCE ONCE IV 07/23/19 13:15 07/23/19 13:16 DC 07/23/19 13:23 80 ML Vital Signs/I&O 07/23/19 07/23/19 10:30 10:30 Temp 36.2 36.2 Pulse 79 79 Resp 12 12 B/P (MAP) 193/110 (137) 193/110 (137) Pulse Ox 92 92 O2 Delivery Room Air Room Air Diagnostic Imaging Diagonstic Imaging: Ultrasound Comments NAME: [facility] REC#: [id number] PT STATUS: REG ER : 1935 PHYSICIAN: YANA CONWAY APRN ADMIT DATE: 07/23/19/ER Draft POSDate of Exam:07/23/19 US ABDOMEN LIMITED [id number] PROCEDURE: US Abdomen, limited. TECHNIQUE: Multiple real-time grayscale images were obtained over the abdomen in various projections. INDICATION: Fall, evaluate for free fluid. COMPARISON: None. FINDINGS: The spleen measures 12.8 cm in length. There is a small amount of free fluid about the spleen. A splenic laceration is not seen by ultrasound. The left kidney appears normal. No free fluid is seen elsewhere in the abdomen. IMPRESSION: 1. Small amount of free fluid about the spleen. No sonographic findings of splenic laceration are seen. Findings discussed with Yana Conway by Dr. Schultz, on 07/23/2019 12:36 p.m. Dictated on workstation # [id number] Dict: 07/23/19 1217 Trans: 07/23/19 1240 [id number] Interpreted by: ROGER SCHULTZ MD Electronically signed by: Departure Communication (Admissions) With the patient, he denies being any more short of breath than usual today. He follows with Dr. Menendez. She is on Lasix. He knows that he only has one functioning kidney. The small amount of ascites seen on CT is related to his congestive heart failure as he also has small bilateral pleural effusions, con gestive heart failure history is unknown, there is no splenic laceration or injury or hepatic injury. Impression Primary Impression: Skin abrasion Additional Impressions: Fall at home Qualified Codes: W19.XXXA - Unspecified fall, initial encounter; Y92.009 - Unspecified place in unspecified non-institutional (private) residence as the place of occurrence of the external cause CHF (congestive heart failure) Qualified Codes: I50.9 - Heart failure, unspecified Disposition: 01 HOME, SELF-CARE Condition: Stable Departure-Patient Inst. Decision time for Depature: 12:27 Referrals: NATHALIA NGUYỄN MD (PCP) Primary Care Physician ORTIZ ALEXANDRE MD (Family) Primary Care Physician Patient Instructions: Skin Abrasions (DC) Add. Discharge Instructions: 1. Return to ER for any concerns 2. Follow-up with your doctor next week 3. All discharge instructions reviewed with patient and/or family. Voiced understanding. YANA CONWAY APRN Jul 23, 2019 11:03 POS
--- NOTE | 2019-07-23 12:16 | Diagnostic Imaging Report ---
INDICATION: Fall, pain. COMPARISON: None available. TECHNIQUE: 3 radiograph left elbow dated 07/23/2019. FINDINGS: No acute fracture or dislocation. No destructive osseous process. Joint spaces are well-maintained. No joint effusion. No suspicious radiopaque foreign body. Mild vascular calcifications. IMPRESSION: No acute osseous abnormality. Dictated by: Dictated on workstation # [id number]
--- NOTE | 2019-07-23 12:20 | Diagnostic Imaging Report ---
INDICATION: Fall. COMPARISON: April 14, 2018. TECHNIQUE: Four radiographs of the chest and left-sided ribs dated July 23, 2019. FINDINGS: The cardiac silhouette is enlarged, though stable. Central pulmonary vascular congestion is present. Minimal background interstitial opacities are noted bilaterally. Blunting of the left costophrenic angle. No pneumothorax. Surgical clips are overlying the left neck. No displaced or healing rib fracture. Degenerative changes within the spine. Scattered vascular calcifications. No suspicious radiopaque foreign body. IMPRESSION: No acute displaced or healing rib fracture. Findings consistent with minimal congestive heart failure with minimal interstitial edema and trace left pleural effusion. This appears to be a chronic finding. Additional findings as above. Dictated by: Dictated on workstation # [id number]
--- NOTE | 2019-07-23 12:22 | Diagnostic Imaging Report ---
INDICATION: Fall. COMPARISON: Imaging from the same day. TECHNIQUE: Four radiographs of the left shoulder dated July 23, 2019. FINDINGS: Mild degenerative changes of the acromioclavicular joints. No acute fracture or dislocation. No destructive osseous process. Minimal degenerative changes of the glenohumeral joint. The visualized right lung is clear of focal pulmonary opacity. IMPRESSION: No acute osseous abnormality with mild degenerative changes. Dictated by: Dictated on workstation # [id number]
--- NOTE | 2019-07-23 12:40 | Diagnostic Imaging Report ---
PROCEDURE: US Abdomen, limited. TECHNIQUE: Multiple real-time grayscale images were obtained over the abdomen in various projections. INDICATION: Fall, evaluate for free fluid. COMPARISON: None. FINDINGS: The spleen measures 12.8 cm in length. There is a small amount of free fluid about the spleen. A splenic laceration is not seen by ultrasound. The left kidney appears normal. No free fluid is seen elsewhere in the abdomen. IMPRESSION: 1. Small amount of free fluid about the spleen. No sonographic findings of splenic laceration are seen. Findings discussed with Kojo Conway by Dr. Powell, on 07/23/2019 12:36 p.m. Dictated by: Dictated on workstation # [id number]
[2019-07-23 12:48] LABS: BASOPHILS % (AUTO) 1 % (0-10); EOSINOPHILS # (AUTO) 0.3 10^3/uL (0.0-0.3); EOSINOPHILS % (AUTO) 6 % (0-10); HEMATOCRIT 37 % (40-54); LYMPHOCYTES # (AUTO) 0.8 X 10^3 (1.0-4.0); LYMPHOCYTES % (AUTO) 15 % (12-44); MEAN CORPUSCULAR HEMOGLOBIN 32 PG (25-34); MEAN CORPUSCULAR HGB CONC 33 G/DL (32-36); MEAN CORPUSCULAR VOLUME 100 FL (80-99); MEAN PLATELET VOLUME 10.7 FL (7.4-10.4); MONOCYTES # (AUTO) 0.6 X 10^3 (0.0-1.0); MONOCYTES % (AUTO) 13 % (0-12); NEUTROPHILS # (AUTO) 3.2 X 10^3 (1.8-7.8); NEUTROPHILS % (AUTO) 65 % (42-75); PLATELET COUNT 88 10^3/uL (130-400); RED CELL DISTRIBUTION WIDTH 15.4 % (10.0-14.5); WHITE BLOOD COUNT 4.9 10^3/uL (4.3-11.0)
[2019-07-23 12:53] LABS: INR 2.5 (0.8-1.4); PROTHROMBIN TIME PATIENT 28.3 SEC (12.2-14.7)
[2019-07-23 13:03] LABS: CALCIUM 9.1 MG/DL (8.5-10.1); CREATININE SERUM 1.2 MG/DL (0.60-1.30); POTASSIUM 4.5 MMOL/L (3.6-5.0)
[2019-07-23] MEDS ORDERED: HOLD METFORMIN - RECEIVED CONTRAST 20 ML VIAL IV SCH (13:15)
[2019-07-23] MEDS ORDERED: IOHEXOL 350 MG/ML 100 ML (OMNIPAQUE 350) VIAL IV ONE (13:15)
[2019-07-23] MEDS ORDERED: NS 100 ML (IVPB) BAG IV ONE (13:15)
[2019-07-23] MEDS ORDERED: CATHETER FLUSH 10 ML SYR IV PRN (13:15)
--- NOTE | 2019-07-23 13:54 | Diagnostic Imaging Report ---
PROCEDURE: CT abdomen and pelvis with contrast. TECHNIQUE: Multiple contiguous axial images were obtained through the abdomen and pelvis after administration of intravenous contrast. Auto Exposure Controls were utilized during the CT exam to meet ALARA standards for radiation dose reduction. INDICATION: Left-sided abdominal pain radiating to the left lower quadrant. COMPARISON: Correlation is made with prior CT from 04/18/2017. FINDINGS: Imaging through the lung bases does show development of small bilateral pleural effusions. The heart is enlarged. No discrete liver mass is detected. The gallbladder is unremarkable. No biliary ductal dilatation is seen. Pancreas is atrophic. The spleen is unremarkable. No adrenal mass is detected. A chronic hydronephrosis of the right kidney with marked atrophy and cortical thinning is seen. Small calculus in the region of the UPJ is again noted. Left kidney again demonstrates parapelvic cysts. No definite hydronephrosis is identified. Aorta is heavily calcified but non-aneurysmal. The bowel loops appear to be nonobstructive. There is diverticulosis of the sigmoid colon but no evidence of acute diverticulitis. There is a small amount of free fluid in the perihepatic and perisplenic region as well as within the paracolic gutter on the left. The prostate is enlarged. No definite abdominal or pelvic lymphadenopathy is seen. Lumbar spine shows multilevel spondylosis with probable chronic compression fracture of the L2 vertebral body. IMPRESSION: 1. Cardiomegaly and small bilateral pleural effusions. 2. Chronic atrophy and hydronephrosis of the right kidney with small calculus in the right renal pelvis. 3. Patient has developed some abdominal ascites, mild. There is uncomplicated diverticulosis present. There is also prostatomegaly. No other significant abnormality is seen. Dictated by: Dictated on workstation # [id number]
--- NOTE | 2019-07-23 14:10 | NUR ---
Kojo Conway notified of pt's BP prior to DC.
[2019-07-23] MEDS ORDERED: cloNIDine 0.1 MG (CATAPRES) TAB PO ONE (14:15)
[2019-07-23 14:35] VITALS: BP 204/111
[2019-09-03] MEDS ORDERED: FURO20TA4 PO (09:34)
[2019-09-03] MEDS ORDERED: CHOL5000 PO (09:37)
[2019-09-03] MEDS ORDERED: NAPR220T66 PO (09:37)
[2019-09-03] MEDS ORDERED: LEG CRAMPS PO (09:38)
[2019-09-06] MEDS ORDERED: POTA10TA PO (17:23)
[2019-09-06] MEDS ORDERED: WARF-48 PO (17:23)
[2019-09-06] MEDS ORDERED: FURO-125 PO (17:23)
== END 2019-07-23 14:39 | disposition home or self-care (01) ==
LOC: EDUNIT# 10:21 → ER 10:22
DX: S50.312A Abrasion of left elbow, initial encounter (principal); S60.812A Abrasion of left wrist, initial encounter; S60.419A Abrasion of unspecified finger, initial encounter; I11.0 Hypertensive heart disease with heart failure; I50.9 Heart failure, unspecified; R40.2142 Coma scale, eyes open, spontaneous, at arrival to emergency department; R40.2252 Coma scale, best verbal response, oriented, at arrival to emergency department; R40.2362 Coma scale, best motor response, obeys commands, at arrival to emergency department; Z88.0 Allergy status to penicillin; Z88.1 Allergy status to other antibiotic agents; W18.39XA Other fall on same level, initial encounter; Y92.009 Unspecified place in unspecified non-institutional (private) residence as the place of occurrence of the external cause
CPT/HCPCS: 36415; 71101; 73030; 73080; 74177; 76705; 80048; 85025; 85610; 90471; 90715

== ENCOUNTER → 2019-09-01 | Outpatient (CLI) | payer MEDICARE ==
[~2019-09-01] MED LIST changes: +CHOL5000 PO; +LEG CRAMPS PO; +NAPR220T66 PO
--- NOTE | 2019-09-01 12:28 | Diagnostic Imaging Report ---
PROCEDURE: CT abdomen and pelvis without contrast. TECHNIQUE: Multiple contiguous axial images were obtained through the abdomen and pelvis without the use of intravenous contrast. Auto Exposure Controls were utilized during the CT exam to meet ALARA standards for radiation dose reduction. INDICATION: Mid abdominal pain. COMPARISON: 07/23/2019 FINDINGS: The heart is enlarged. Bilateral rqnai-gh-lxmhshhn pleural effusions are seen with bibasilar atelectasis. The liver has a macronodular contour. No focal hepatic lesions are identified. A wqqku-jh-otajxsti volume of free fluid is seen in the abdomen and pelvis. Atrophy of the right kidney is again noted with dilated collecting system. No acute abnormalities are seen in the left kidney. Fatty atrophy of the pancreas is noted. No focal pancreatic lesions are seen. The spleen and adrenal glands have a normal noncontrast CT appearance. There is no pathologically enlarged mesenteric or retroperitoneal adenopathy. The bowel loops are nondilated. Diverticulosis of the colon is seen without evidence of acute diverticulitis. There is no free air. There is calcified aortic and iliac atherosclerotic plaque without evidence of aneurysm. Chronic compression fracture is again noted at L2. No acute fracture or dislocation is seen in the included osseous structures. The urinary bladder is decompressed. There is no free air, loculated collection, or adenopathy in the pelvis. IMPRESSION: 1. Cirrhotic morphology of the liver. 2. Increased volume of ascites in the abdomen and pelvis. 3. Increased ntfch-mm-tssbyjsj bilateral pleural effusions with bibasilar atelectasis. 4. Cardiomegaly. 5. Diverticulosis without evidence of acute diverticulitis. No bowel obstruction. Dictated by: Dictated on workstation # [id number]
== END ==
LOC: RAD 11:52
PROVIDERS: ATTEND Internal Medicine
DX: K74.60 Unspecified cirrhosis of liver (principal); I51.7 Cardiomegaly; K57.30 Diverticulosis of large intestine without perforation or abscess without bleeding; R18.8 Other ascites
CPT/HCPCS: 74176

== ENCOUNTER → 2019-09-13 | Outpatient (CLI) | payer MEDICARE ==
[~2019-09-13] MED LIST changes: +FURO-125 PO; +POTA10TA PO
[2019-09-13 22:02] LABS: HEPATITIS C ANTIBODY C Non-Reactive (Non-Reactive)
== END ==
LOC: LAB 12:02
PROVIDERS: ATTEND Internal Medicine
DX: K74.60 Unspecified cirrhosis of liver (principal)
CPT/HCPCS: 36415; 80074

== ENCOUNTER 2019-10-14 12:38 | Outpatient (RCR) | payer MEDICARE ==
[2019-10-07 13:56] LABS: BASOPHILS % (AUTO) 1 % (0-10); EOSINOPHILS # (AUTO) 0.5 10^3/uL (0.0-0.3); EOSINOPHILS % (AUTO) 10 % (0-10); HEMATOCRIT 37 % (40-54); HEMOGLOBIN 11.9 G/DL (13.3-17.7); LYMPHOCYTES % (AUTO) 20 % (12-44); MEAN CORPUSCULAR HEMOGLOBIN 32 PG (25-34); MEAN CORPUSCULAR HGB CONC 32 G/DL (32-36); MEAN CORPUSCULAR VOLUME 101 FL (80-99); MEAN PLATELET VOLUME 11.5 FL (7.4-10.4); MONOCYTES # (AUTO) 0.6 X 10^3 (0.0-1.0); MONOCYTES % (AUTO) 13 % (0-12); NEUTROPHILS # (AUTO) 2.7 X 10^3 (1.8-7.8); NEUTROPHILS % (AUTO) 56 % (42-75); PLATELET COUNT 98 10^3/uL (130-400); RED CELL DISTRIBUTION WIDTH 15.8 % (10.0-14.5); WHITE BLOOD COUNT 4.9 10^3/uL (4.3-11.0)
[2019-10-07 14:13] LABS: ALBUMIN 3.8 GM/DL (3.2-4.5); BILIRUBIN,TOTAL 1.7 MG/DL (0.1-1.0); CALCIUM 9.2 MG/DL (8.5-10.1); CREATININE SERUM 1.29 MG/DL (0.60-1.30); POTASSIUM 4.3 MMOL/L (3.6-5.0); TOTAL PROTEIN 6.5 GM/DL (6.4-8.2)
== END 2020-01-05 | disposition home or self-care (01) ==
LOC: ONC 12:38
PROVIDERS: ATTEND Internal Medicine Hematology & Oncology
DX: D64.9 Anemia, unspecified (principal); D69.6 Thrombocytopenia, unspecified; E55.9 Vitamin D deficiency, unspecified; I48.91 Unspecified atrial fibrillation; I10 Essential (primary) hypertension; R60.0 Localized edema; R06.09 Other forms of dyspnea; Z79.01 Long term (current) use of anticoagulants; Z79.82 Long term (current) use of aspirin
CPT/HCPCS: 80053; 82306; 82728; 83615; 85025; 99213